=== PATIENT | female | born 1970 | race Caucasian/White ===

== ENCOUNTER 2021-12-17 11:24 | Outpatient (CLI) | payer BC | END 2021-12-17 11:25 | disposition home or self-care (01) | LOC: CSHMRI 11:24 | PROVIDERS: ATTEND Orthopaedic Surgery | DX: M23.91 Unspecified internal derangement of right knee (principal); S83.241A Other tear of medial meniscus, current injury, right knee, initial encounter; M94.261 Chondromalacia, right knee; M23.8X1 Other internal derangements of right knee; M94.8X6 Other specified disorders of cartilage, lower leg ==

== ENCOUNTER 2023-08-12 08:13 | Outpatient (CLI) | payer BC ==
[2023-08-12] MEDS ORDERED: Iopamidol 300 61% 100 ML VIAL FS ONE (10:24)
== END 2023-08-12 08:14 | disposition home or self-care (01) ==
LOC: CSHCT 08:13
PROVIDERS: ATTEND Physician Assistant Medical
DX: R10.12 Left upper quadrant pain (principal); Z90.49 Acquired absence of other specified parts of digestive tract; Z98.84 Bariatric surgery status; N28.9 Disorder of kidney and ureter, unspecified; K57.30 Diverticulosis of large intestine without perforation or abscess without bleeding
CPT/HCPCS: 74177